=== PATIENT | female | born 1990 | race Caucasian/White ===

== ENCOUNTER 2016-12-31 22:38 | Emergency (ER) | payer SELFPAY ==
[~2016-12-31] VITALS: Ht 170.2 cm; Wt 62.0 kg
[~2016-12-31 22:38] MED LIST: GENT0.1C RIGHT EYE; OCUF0.3D EACH EYE; SULF1SOL4 RIGHT EYE
[2016-12-31 22:41] VITALS: BP 125/67; PULSE 76; RESP 16; TEMP 99.2; O2SAT 100
== END 2017-01-01 00:20 | disposition left against medical advice (07) ==
LOC: NED 22:38
DX: O46.91 Antepartum hemorrhage, unspecified, first trimester (principal); Z3A.08 8 weeks gestation of pregnancy; Z53.21 Procedure and treatment not carried out due to patient leaving prior to being seen by health care provider
CPT/HCPCS: 99281

== ENCOUNTER 2017-07-26 21:40 | Emergency (ER) | payer MEDICAID ==
[2017-07-26 22:00] VITALS: BP 126/78; PULSE 92
--- NOTE | 2017-07-26 22:03 | PD ---
HPI Chief Complaint ctx, ?LOF Date Seen: Jul 26, 2017 Travel History International Travel<30 Days: No Contact w/Intl Traveler<30Days: No Known Affected Area: No History of Present Illness HPI Pt is a 27y/o @ 38.0wks. She has PNC with [facility]. She presents with c/o ctx which are irregular and ?LOF last night. Pt states she had sex and isn't sure if she broke her water or if it was semen. is complicated by: -- h/o CSx1 (10 yrs ago) -- HSV (not on suppression, last outbreak October) -- HepC -- h/o IVDA (clean 18m) She desires . Weeks Gestation: 38 Para: 1 : 2 Last Menstrual Period: Jul 26, 2017 History Past Medical History Narrative Medical HepC h/o IVDA (cocaine/heroine) Obstetric History Obstetric History 1. 1'cs at term, preE, HSV Past Surgical History Narrative Surgical CSx1 Family History Family History: Negative Social History Alcohol Use: No Tobacco Use: No Substance Abuse: No (clean x18m) Allergies-Medications (Allergen,Severity, Reaction): Coded Allergies: coconut (Unverified Allergy, Severe, 03/04/17) Home Meds Active Scripts Ofloxacin (Ophth) (Floxcin) 0.3 % Soln, 1 DROP EACH EYE DIRECTED for 7 Days 2 drops in each eye every 2 hours x2 days, then 2 drops in each eye 4 times a day x5 days Prov:Elvia Zarco 08/22/13 Reported Medications Sulfacetamide Sodium 10% OPHT 15 ML (Sodium Sulamyd) 10 % Letitia, 1 DROP RIGHT EYE BID, LETITIA 08/22/13 Gentamicin Sulfate (Garamycin) 0.3 % Oin, 1 APPLIC RIGHT EYE BID, OIN 08/22/13 Review of Systems Except as stated in HPI: all other systems reviewed are Neg Physical Exam Narrative General: well developed, well nourished, no acute distress HEENT: normocephalic atraumatic, extraocular movements intact, neck supple Abdomen: soft, gravid, nontender, nondistended Uterus: fundus term Extremities: full range of motion Skin: normal coloration, no rashes, no suspicious skin lesions noted Neurologic: cranial nerves 2-12 grossly intact, normal muscle tone, normal gait Psychiatric: normal mood and affect, appropriate FHTs: 140, +accels, no decels, moderate variability, reactive [place]: quiet Cvx: 0/50/-3 Data Data Vital Signs Reviewed: Yes Orders Orders Vital Signs (Adult) .ON ADMISSION (07/26/17 22:02) ^ Non Stress Test (07/26/17 22:02) MDM Plan 27y/o @ 38.0wks. -- amnisure neg -- cvx cl/50/-3 -- FHTs cat 1 -- Pt desires . Had consult scheduled for 07/06 (39.5wks). Reviewed R/B/A today and will cancel consult. She is an excellent candidate given 10yr interval from prior and reason for c/s was HSV/preE. Pt counseled that HSV suppression tx is mandatory to prevent outbreak. Rx given. Pt counseled that best chance of sucessful is to come in with spontaneous labor. Dispo: d/c home with precautions, Rx Diagnosis Diagnosis: Primary Impression: 38 weeks gestation of Additional Impressions: Uterine contractions during No leakage of amniotic fluid into vagina Viral hepatitis complicating History of intravenous drug abuse HSV (herpes simplex virus) anogenital infection Gerardo Gonzalez MD Jul 26, 2017 22:03
== END 2017-07-26 22:30 | disposition home or self-care (01) ==
LOC: HOBED 21:40
DX: O47.1 False labor at or after 37 completed weeks of gestation (principal); O98.42 Viral hepatitis complicating childbirth; B19.9 Unspecified viral hepatitis without hepatic coma; O99.324 Drug use complicating childbirth; F19.10 Other psychoactive substance abuse, uncomplicated; O98.513 Other viral diseases complicating pregnancy, third trimester; B00.9 Herpesviral infection, unspecified; Z3A.38 38 weeks gestation of pregnancy; Z79.899 Other long term (current) drug therapy
CPT/HCPCS: 84112; 99284

== ENCOUNTER 2017-07-29 22:33 | Emergency (ER) | payer MEDICAID ==
--- NOTE | 2017-07-29 23:04 | PD ---
HPI Chief Complaint Contractions Date Seen: Jul 29, 2017 Time Seen: 23:01 Travel History International Travel<30 Days: No Contact w/Intl Traveler<30Days: No Known Affected Area: No History of Present Illness HPI 27-year-old at 3839 weeks gestation comes in complaining of contractions. Patient has had lower abdominal pain ever since she had membrane stripping in the office of [facility] this morning. She's had a previous 10 years ago and desires a trial of labor after . Contractions are irregular and have been occurring for the past 2 hours. Weeks Gestation: 38 Para: 1 : 2 History Past Medical History Narrative Medical Hepatitis C, chronic History of HSV presently on Valtrex suppression History of IV drug abuse denies use for the past 18 months Obstetric History Obstetric History 10 years ago Past Surgical History Narrative Surgical section Family History Family History: Negative Social History Alcohol Use: No Tobacco Use: No Substance Abuse: No Allergies-Medications (Allergen,Severity, Reaction): Coded Allergies: coconut (Unverified Allergy, Severe, 03/04/17) Home Meds Active Scripts Ofloxacin (Ophth) (Floxcin) 0.3 % Soln, 1 DROP EACH EYE DIRECTED for 7 Days 2 drops in each eye every 2 hours x2 days, then 2 drops in each eye 4 times a day x5 days Prov:Elvia Zarco 08/22/13 Reported Medications Sulfacetamide Sodium 10% OPHT 15 ML (Sodium Sulamyd) 10 % Letitia, 1 DROP RIGHT EYE BID, LETITIA 08/22/13 Gentamicin Sulfate (Garamycin) 0.3 % Oin, 1 APPLIC RIGHT EYE BID, OIN 08/22/13 Review of Systems Except as stated in HPI: all other systems reviewed are Neg Physical Exam Narrative GENERAL: Well-nourished, well-developed patient. SKIN: Warm and dry. HEAD: Normocephalic and atraumatic. ABDOMEN/GI: Abdomen soft, non-tender, bowel sounds present, no rebound, no guarding Gravid to [38-] weeks size Fundal Height: [-] GENITOURINARY: External Genitalia: intact and normal in appearance BUS glands: [-] Normal Cervix: [-] Posterior Dilatation: [-] Fingertip Effacement: [-] 50 Station: [-] High Presentation: [-] Vertex Membranes: [intact or ruptured] intact Uterine Contractions: [-] Every 5-8 minutes FHT's: Category: [-] 1 Baseline: [-] 140 Reactive: [-] Moderate Variability: [-] Moderate Decels: [-] Absent EXTREMITIES: No cyanosis or edema. BACK: Nontender without obvious deformity. No CVA tenderness. NEUROLOGICAL: Awake and alert. Motor and sensory grossly within normal limits. Five out of 5 muscle strength in all muscle groups. Normal speech. Reexamination at 0000am contractions are irregular are more spaced Cervix is unchanged Data Data Vital Signs Reviewed: Yes [facility] Medical Record Reviewed: Yes Plan 27 yo prior for TOLAC with false labor. No cervical change since exam this am Labor precautions given, return for ROM, worsening contractions, vaginal bleeding or decreased movement Keep appointment with OB provider Diagnosis Diagnosis: Primary Impression: 38 weeks gestation of Additional Impressions: Previous delivery affecting , antepartum False labor after 37 completed weeks of gestation Desires (vaginal after ) trial Disposition: 01 DISCHARGE HOME Leatha Drummond MD Jul 29, 2017 23:04
== END 2017-07-30 00:13 | disposition home or self-care (01) ==
LOC: HOBED 22:33
DX: O47.1 False labor at or after 37 completed weeks of gestation (principal); O98.42 Viral hepatitis complicating childbirth; O34.219 Maternal care for unspecified type scar from previous cesarean delivery; Z3A.38 38 weeks gestation of pregnancy
CPT/HCPCS: 59025

== ENCOUNTER 2017-08-07 08:27 | Inpatient (IN) | payer MEDICAID ==
[~2017-08-07] VITALS: Ht 157.5 cm; Wt 87.0 kg
[2017-08-07] VITALS (11 sets, daily range): BP systolic 102–120; BP diastolic 57–76; PULSE 55–92; RESP 15–20; TEMP 97.6–99.4; O2SAT 97–99
[2017-08-07] MEDS ORDERED: VALT500T PO (09:17)
--- NOTE | 2017-08-07 09:20 | HHI.HP ---
HPI Chief Complaint Scheduled repeat Date Seen: Aug 07, 2017 Time Seen: 09:00 Travel History International Travel<30 Days: No Contact w/Intl Traveler<30Days: No Known Affected Area: No History of Present Illness HPI Patient is a 27 year old at 39 weeks and 5 days who presents for a scheduled section. Patient has received care at [facility]' s office. Patient was recently seen in OB triage for irregular contractions with no cervical change. Patient reports no contractions since that visit on 07/26. Patient reports light pink spotting today. She denies gush of fluid. She reports positive movement. Weeks Gestation: 39 Para: 1 : 2 History Past Medical History Narrative Medical Hepatitis C - never been treated HSV - on Valtrex, last dose 08/07 at 7 a.m. History of IV drug use - no use for 21 months Obstetric History Obstetric History G1 - 2006; induction secondary to preeclampsia -> primary due to failure to progress G2 - current , no complications Past Surgical History Narrative Surgical x1 Family History Family History: Negative Social History Alcohol Use: No Tobacco Use: No Substance Abuse: No (History of IV drug use, cocaine and heroine ) Allergies-Medications (Allergen,Severity, Reaction): Coded Allergies: coconut (Unverified Allergy, Severe, 03/04/17) Home Meds Active Scripts Valacyclovir (Valtrex) 500 Mg Tab, 500 MG PO BID for Mgmt Viral Infection, #60 TAB 0 Refills Prov:Prisca Abdalla MD R1 08/07/17 Review of Systems Except as stated in HPI: all other systems reviewed are Neg Physical Exam Narrative GENERAL: Well-nourished, well-developed patient. SKIN: Warm and dry. HEAD: Normocephalic and atraumatic. EYES: No scleral icterus. No injection or drainage. ENT: No nasal drainage noted. Mucous membranes pink. Airway patent. NECK: Supple, trachea midline. No JVD. CARDIOVASCULAR: Regular rate and rhythm without murmurs, gallops, or rubs. RESPIRATORY: Breath sounds equal bilaterally. No accessory muscle use. ABDOMEN/GI: Abdomen soft, non-tender, bowel sounds present, no rebound, no guarding Gravid to 39 weeks size GENITOURINARY: Membranes: Intact Uterine Contractions: None FHT's: Category: 1 Baseline: 150 Reactive: Reactive Variability: Moderate Decels: None EXTREMITIES: No cyanosis or edema. BACK: Nontender without obvious deformity. No CVA tenderness. NEUROLOGICAL: Awake and alert. Motor and sensory grossly within normal limits. Five out of 5 muscle strength in all muscle groups. Normal speech. Caprini VTE Risk Assessment Caprini VTE Risk Assessment: No/Low Risk (score <= 1) Caprini Risk Assessment Model Point Value = 1 Point Value = 2 Point Value = 3 Point Value = 5 Age 41-60 Minor surgery BMI > 25 kg/m2 Swollen legs Varicose veins or History of unexplained or recurrent spontaneous Oral contraceptives or hormone replacement Sepsis (< 1 month) Serious lung disease, including pneumonia (< 1 month) Abnormal pulmonary function Acute myocardial infarction Congestive heart failure (< 1 month) History of inflammatory bowel disease Medical patient at bed rest Age 61-74 Arthroscopic surgery Major open surgery (> 45 min) Laparoscopic surgery (> 45 min) Malignancy Confined to bed (> 72 hours) Immobilizing plaster cast Central venous access Age >= 75 History of VTE Family history of VTE Factor V Leiden Prothrombin [id number] Lupus anticoagulant Anticardiolipin antibodies Elevated serum homocysteine Heparin-induced thrombocytopenia Other congenital or acquired thrombophilia Stroke (< 1 month) Elective arthroplasty Hip, pelvis, or leg fracture Acute spinal cord injury (< 1 month) Prophylaxis Regimen Total Risk Factor Score Risk Level Prophylaxis Regimen 0-1 Low Early ambulation 2 Moderate Order ONE of the following: *Sequential Compression Device (SCD) *Heparin 5000 units SQ BID 3-4 Higher Order ONE of the following medications: *Heparin 5000 units SQ TID *Enoxaparin/Lovenox 40 mg SQ daily (WT < 150 kg, CrCl > 30 mL/min) *Enoxaparin/Lovenox 30 mg SQ daily (WT < 150 kg, CrCl > 10-29 mL/min) *Enoxaparin/Lovenox 30 mg SQ BID (WT < 150 kg, CrCl > 30 mL/min) AND/OR *Sequential Compression Device (SCD) 5 or more Highest Order ONE of the following medications: *Heparin 5000 units SQ TID (Preferred with Epidurals) *Enoxaparin/Lovenox 40 mg SQ daily (WT < 150 kg, CrCl > 30 mL/min) *Enoxaparin/Lovenox 30 mg SQ daily (WT < 150 kg, CrCl > 10-29 mL/min) *Enoxaparin/Lovenox 30 mg SQ BID (WT < 150 kg, CrCl > 30 mL/min) AND *Sequential Compression Device (SCD) Data Data Vital Signs Reviewed: Yes Group B Strep: Negative Assessment/Plan Assessment and Plan Patient is a 27 year old at 39 weeks and 5 days who presents for a scheduled section. Patient has received care at [facility]' s office. * IUP- Category I tracing, reassuring. * Admit for repeat . Prisca Abdalla MD R1 Aug 07, 2017 09:20
[2017-08-07] MEDS ORDERED: LACTATED RINGER'S 1000 ML INJ 1,000 ML IV ONE ×2 (09:32→12:00)
[2017-08-07 09:50] LABS: BILIRUBIN, URINE NEG (NEG); BLOOD, URINE NEG (NEG); GLUCOSE,URINE NEG (NEG); HYALINE CAST, URINE 1 /lpf (RARE); KETONE, URINE NEG (NEG); MUCUS URINE FEW /lpf (OCC); NITRITE,URINE NEG (NEG); PH, URINE 7.5 (5.0-8.5); SQUAMOUS EPITHELIAL CELL URINE 1 /hpf (0-5); TRANSITIONAL EPI CELLS, URINE <1 /hpf; URINE COLOR YELLOW (YELLW/STRAW); URINE LEUKOCYTE ESTERASE TRACE (NEG)
[2017-08-07 09:50] LABS: AUTOMATED NEUTROPHIL # 7.2 TH/MM3 (1.8-7.7); BASOPHIL # 0.1 TH/MM3 (0-0.2); BASOPHIL % 0.6 % (0.0-2.0); EOSINOPHIL # 0.1 TH/MM3 (0-0.4); EOSINOPHIL % 0.5 % (0.0-4.0); HEMATOCRIT 34.3 % (35.0-46.0); HEMOGLOBIN 11.7 GM/DL (11.6-15.3); LYMPH % 21.9 % (9.0-44.0); LYMPHOCYTE # 2.3 TH/MM3 (1.0-4.8); MEAN CELL VOLUME 86.2 FL (80.0-100.0); MEAN CORPUSCULAR HEMOGLOBIN 29.4 PG (27.0-34.0); MEAN CORPUSCULAR HGB CONC 34.1 % (32.0-36.0); MEAN PLATELET VOLUME 9.1 FL (7.0-11.0); MONO % 7.7 % (0.0-8.0); MONOCYTE # 0.8 TH/MM3 (0-0.9); NEUT % 69.3 % (16.0-70.0); PLATELET COUNT 218 TH/MM3 (150-450); RED BLOOD COUNT 3.98 MIL/MM3 (4.00-5.30); RED CELL DISTRIBUTION WIDTH 12.9 % (11.6-17.2); WHITE BLOOD COUNT 10.4 TH/MM3 (4.0-11.0)
[2017-08-07] MEDS ORDERED: ACETAMINOPHEN 1000 MG/100 ML 100 ML IV ONE ×2 (09:58→11:00)
[2017-08-07] MEDS ORDERED: MORPHINE SULFATE PF 5 MG/10 ML VIAL ONE (09:58)
[2017-08-07] MEDS ORDERED: LACTATED RINGER'S 1000 ML INJ 1,000 ML IV SCH ×2 (10:02→17:22)
[2017-08-07] MEDS ORDERED: EPIDURAL-NO SYSTEMIC NARCOTICS PRN (10:35)
[2017-08-07] MEDS ORDERED: EPIDURAL-DIPHENHYDRAMINE HCL 50 MG CAP PO PRN (10:35)
[2017-08-07] MEDS ORDERED: EPIDURAL-NALOXONE HCL 0.4 MG/ML AMP IV PUSH PRN (10:35)
[2017-08-07] MEDS ORDERED: EPIDURAL-DO NOT ADMINISTER ANTICOAGULANTS PRN (10:35)
[2017-08-07] MEDS ORDERED: EPIDURAL-DIPHENHYDRAMINE HCL 50 MG/ML VIAL IV PUSH PRN (10:35)
--- NOTE | 2017-08-07 10:36 | HHI.PR ---
Subjective Remarks The patient is a 27-year-old 001 with IUP at 39.5. She presents for repeat delivery. She declines a at this time. She is hep C positive and HSV positive with a history of IV drug abuse but has been clean for 16 months. We discussed the risks, benefits, and alternatives to delivery including but not limited to pain, infection, bleeding, injury to other organs like the bladder, bowels, nerves, vessels, injury to the baby, need for blood transfusion, need for hysterectomy, need for repeat operation, wound infection or breakdown, and other possible complications. All of her questions were answered and consent was signed. The fetus had a reassuring NST. The patient does not desire a tubal ligation at this time. Objective Vital Signs Date Time Temp Pulse Resp B/P (MAP) Pulse Ox O2 Delivery O2 Flow Rate FiO2 08/07/17 09:43 98.8 20 08/07/17 09:33 92 119/76 (90) Result Diagram: 08/07/17 0905 Caitlyn Soto MD Aug 07, 2017 10:36
[2017-08-07] MEDS ORDERED: ceFAZolin 2 GM PREMIX 50 ML IV SCH (10:45)
[2017-08-07] MEDS ORDERED: CITRIC ACID-SODIUM CITRATE LIQ 30 ML UDC PO SCH (11:15)
[2017-08-07] MEDS ORDERED: PHENYLEPH/NS 1000 MCG/10 ML SYR IV ONE (12:00)
[2017-08-07] MEDS ORDERED: OXYTOCIN 10 UNIT/ML AMP IV ONE (12:00)
[2017-08-07] MEDS ORDERED: PROPOFOL 200 MG/20 ML AMP IV ONE (12:00)
[2017-08-07] MEDS ORDERED: DEXAMETHASONE SOD PHOS 4 MG/ML VIAL IV ONE (12:00)
[2017-08-07] MEDS ORDERED: ONDANSETRON HCL 4 MG/2 ML VIAL IV ONE (12:00)
--- NOTE | 2017-08-07 12:01 | PD.OB.DELI ---
Procedure Note Section Procedure Performed by Caitlyn Soto Procedure: Repeat Low Transverse Sec Indication for delivery: Desired elective repeat Previous condition: None Informed consent obtained: For anesthesia, For procedure Confirmed correct: Patient, Procedure, Site, Time-out taken Anesthesia: Spinal Medication prior to procedure: As documented in eMAR Monitoring during procedure: Blood pressure monitoring, monitor, Pulse oximetry Urinary catheter: Inserted using sterile technique, To dependent drainage, ml urine output (150cc clear urine) Sterile preparation: In usual fashion, With drapes to expose affected area, Other (Chloraprep) Position: Supine with wedge to left side Operative Features Skin Incision: Pfannenstiel Uterine Incision: Low transverse w/knife / blunt ext Membranes Ruptured: Artificially Presentation: Occiput anterior Delivery date: Aug 07, 2017 Delivery time: 10:54 Delivery of : Uneventful : Female One Minute : 9 Five Minute : 9 Weight: 3220g Status of infant: Viable, Cord blood, Nursery present Placenta delivered: Intact Medications: Oxytocin Estimated blood loss: 600cc Procedure tolerated: Well Maternal Condition: Stable Condition: Stable Procedure in detail See dictated op report Caitlyn Soto MD Aug 07, 2017 12:01
[2017-08-07] MEDS ORDERED: ONDANSETRON HCL 4 MG/2 ML VIAL IV PUSH PRN (12:30)
[2017-08-07] MEDS ORDERED: SODIUM CHLORIDE 0.9% FLUSH 10 ML FLUSH IV FLUSH PRN (12:30)
[2017-08-07] MEDS ORDERED: oxyCODONE/ACETAMINOPHEN 5 MG/325 MG TAB PO PRN ×2 (12:30)
[2017-08-07] MEDS ORDERED: IBUPROFEN 600 MG TAB PO PRN (12:30)
[2017-08-07] MEDS ORDERED: OXYTOCIN 30 UNITS-500ML PREMIX 500 ML IV ONE (12:30)
[2017-08-07] MEDS: ACETAMINOPHEN 1000 MG/100 ML 100 ML IV SCH (20:10)
[2017-08-07] MEDS ORDERED: OXYTOCIN 30 UNITS-500ML PREMIX 500 ML IV PRN (22:30)
[2017-08-08 00:40] VITALS: BP 118/67; PULSE 88; RESP 16; TEMP 99.1
[2017-08-08 04:00] VITALS: BP 118/68; PULSE 88; RESP 14; RESP 9; TEMP 98.7
[2017-08-08] MEDS: ACETAMINOPHEN 1000 MG/100 ML 100 ML IV SCH (04:17)
[2017-08-08] MEDS: ACETAMINOPHEN 325 MG TAB PO PRN ×3 (04:30→17:44)
[2017-08-08 07:15] LABS: AUTOMATED NEUTROPHIL # 11.5 TH/MM3 (1.8-7.7); BASOPHIL % 0.3 % (0.0-2.0); EOSINOPHIL % 0.3 % (0.0-4.0); HEMOGLOBIN 9.4 GM/DL (11.6-15.3); LYMPH % 15.6 % (9.0-44.0); LYMPHOCYTE # 2.3 TH/MM3 (1.0-4.8); MEAN CELL VOLUME 86.3 FL (80.0-100.0); MEAN CORPUSCULAR HGB CONC 33.6 % (32.0-36.0); MEAN PLATELET VOLUME 8.9 FL (7.0-11.0); MONO % 6.6 % (0.0-8.0); NEUT % 77.2 % (16.0-70.0); PLATELET COUNT 182 TH/MM3 (150-450); RED BLOOD COUNT 3.25 MIL/MM3 (4.00-5.30); RED CELL DISTRIBUTION WIDTH 12.7 % (11.6-17.2); WHITE BLOOD COUNT 14.9 TH/MM3 (4.0-11.0)
[2017-08-08 08:00] VITALS: BP 108/67; PULSE 93; RESP 18; TEMP 98.9; O2SAT 97
--- NOTE | 2017-08-08 10:00 | HHI.OB ---
Subjective Post Operative Day: 1 Remarks Patient is a 27-year-old delivered at 39 weeks and 5 days. Patient is day 1 after repeat section. Patient's pain is well- controlled. Patient reports minimal bleeding. Patient reports eating and drinking without any nausea or vomiting. Patient has not passed gas or had a bowel movement. Patient denies chest pain and shortness of breath. Patient has been ambulating; she denies lower extremity pain. Patient has decided to breast feed. Objective Vitals/I&O Vital Signs Date Time Temp Pulse Resp B/P (MAP) Pulse Ox O2 Delivery O2 Flow Rate FiO2 08/08/17 04:00 118/68 (85) 08/08/17 04:00 98.7 88 9 08/08/17 04:00 14 08/08/17 00:40 99.1 88 16 118/67 (84) 08/07/17 21:00 99.1 76 111/66 (81) 08/07/17 21:00 99.4 77 16 120/66 (84) 08/07/17 17:30 97.6 67 16 105/66 (79) 08/07/17 13:51 97.8 55 16 08/07/17 13:51 102/70 (81) 08/07/17 13:00 99 08/07/17 13:00 16 08/07/17 13:00 67 106/57 (73) 08/07/17 12:45 76 18 104/60 (75) 08/07/17 12:45 98 08/07/17 12:30 99 08/07/17 12:30 69 20 08/07/17 12:30 102/60 (74) 08/07/17 12:15 97 08/07/17 12:15 102/61 (75) 08/07/17 12:15 76 15 08/07/17 12:03 97.7 73 16 107/67 (80) 08/07/17 12:00 107/67 (80) 08/07/17 12:00 98 08/07/17 12:00 97.7 73 16 Result Diagram: 08/08/17 0502 Objective Remarks GENERAL: Well-nourished, well-developed patient. CARDIOVASCULAR: Regular rate and rhythm without murmurs, gallops, or rubs. RESPIRATORY: Breath sounds equal bilaterally. No accessory muscle use. ABDOMEN/GI: Abdomen soft, minimally tender, hypoactive bowel sounds. Incision: Pressure dressing in place. Dry. Fundus: Firm, tender at umbilicus. GENITOURINARY: Light bleeding. EXTREMITIES: No cyanosis or edema, non-tender, without signs of DVT. Medications and IVs Current Medications Medications (Trade) Dose Ordered Sig/Elvis Route Start Time Stop Time Status Last Admin Lactated Ringer's 1,000 ml @ 100 mls/hr Q10H IV 08/07/17 17:22 08/08/17 13:21 Oxytocin 500 ml @ 100 mls/hr UNSCH X1 PRN IV 08/07/17 22:30 08/08/17 22:29 (NS Flush) 2 ml BID IV FLUSH 08/07/17 21:00 (NS Flush) 2 ml UNSCH PRN IV FLUSH 08/07/17 12:30 (Tylenol) 650 mg Q6H PRN PO 08/07/17 12:30 08/08/17 04:30 (Motrin) 600 mg Q6H PRN PO 08/07/17 12:30 08/08/17 04:30 (Percocet 5-325 Mg) 1 tab Q4H PRN PO 08/07/17 12:30 (Percocet 5-325 Mg) 2 tab Q4H PRN PO 08/07/17 12:30 (M-M-R Ii Inj) 0.5 ml ONCE ONCE SQ 08/08/17 16:00 08/08/17 16:01 (Boostrix Inj) 0.5 ml ONCE ONCE IM 08/08/17 16:00 08/08/17 16:01 08/07/17 23:51 (Zofran Inj) 4 mg Q6H PRN IV PUSH 08/07/17 12:30 Miscellaneous Information NO SYSTEMIC NARCOTICS TO BE GIVEN FO... UNSCH PRN .XX 08/07/17 10:35 08/08/17 10:34 (Narcan Inj) 0.4 mg UNSCH PRN IV PUSH 08/07/17 10:35 08/08/17 10:34 (Benadryl Inj) 25 mg Q6H PRN IV PUSH 08/07/17 10:35 08/08/17 10:34 (Benadryl) 50 mg Q6H PRN PO 08/07/17 10:35 08/08/17 10:34 08/07/17 14:17 Miscellaneous Information ALL NURSING DEPARTMENTS UNSCH PRN .XX 08/07/17 10:35 08/08/17 10:34 Assessment/Plan Assessment and Plan Patient is a 27-year-old delivered at 39 weeks and 5 days. Patient is day 1 after repeat section. * Continue routine care. * Tylenol or Toradol IM when necessary for pain. * Encourage OOB. * 1 week follow-up for incision check. * Pelvic rest for 6 weeks; will need follow-up appointment at that time. * Anticipate discharge tomorrow or Friday. Patient discussed with OB hospitalist. Prisca Abdalla MD R1 Aug 08, 2017 10:00
[2017-08-08] MEDS ORDERED: KETOROLAC TROMETHAMINE 10 MG TAB PO PRN (10:45)
[2017-08-08] MEDS: KETOROLAC TROMETHAMINE 60 MG/2 ML (IM) VIAL IM PRN ×3 (11:15→23:56)
[2017-08-08] MEDS ORDERED: CALCIUM CARBONATE 500 MG CHEWABLE TAB CHEW PRN (15:00)
[2017-08-08] MEDS ORDERED: MEASLES, MUMPS, RUBELLA VACCINE 0.5 ML VIAL SQ ONE (16:00)
[2017-08-08] MEDS ORDERED: DIPHTH/TETANUS/ACEL PERTUSSIS (BOOSTER) 0.5 ML VIAL/PFS IM ONE (16:00)
[2017-08-08 20:00] VITALS: BP 134/81; PULSE 84; RESP 18; TEMP 97.5; O2SAT 96
[2017-08-08] MEDS ORDERED: oxyCODONE/ACETAMINOPHEN 5 MG/325 MG TAB PO PRN (23:45)
[2017-08-08] MEDS: oxyCODONE/ACETAMINOPHEN 5 MG/325 MG TAB PO PRN (23:55)
[2017-08-09] MEDS: oxyCODONE/ACETAMINOPHEN 5 MG/325 MG TAB PO PRN ×3 (06:10→16:15)
[2017-08-09] MEDS: KETOROLAC TROMETHAMINE 60 MG/2 ML (IM) VIAL IM PRN ×2 (06:12→12:09)
[2017-08-09 08:00] VITALS: BP 114/78; PULSE 87; RESP 18; TEMP 98.9; O2SAT 97
--- NOTE | 2017-08-09 09:42 | HHI.OB ---
Subjective Post Operative Day: 2 Remarks Postoperative day number 2. AFVSS overnight. Pain improving after given Percocet this AM. Incision not draining. Decreased lochia. Denies dysuria. No breast tenderness. She is feeding the baby via breast. Appetite good. No nausea or vomiting. Endorses flatus. No bowel movement. Ambulating well. Denies calf pain, shortness of breath, or cough. Otherwise, she is doing well this morning and has no other complaints. Objective Vitals/I&O Vital Signs Date Time Temp Pulse Resp B/P (MAP) Pulse Ox O2 Delivery O2 Flow Rate FiO2 08/08/17 20:00 97.5 84 18 134/81 (98) 96 Result Diagram: 08/08/17 0506 Objective Remarks GENERAL: Well-nourished, well-developed patient. CARDIOVASCULAR: Regular rate and rhythm without murmurs, gallops, or rubs. RESPIRATORY: Breath sounds equal bilaterally. No accessory muscle use. ABDOMEN/GI: Abdomen soft, minimally tender, hypoactive bowel sounds. Incision: Pressure dressing in place. Dry. Fundus: Firm, tender at umbilicus. GENITOURINARY: Light bleeding. EXTREMITIES: No cyanosis or edema, non-tender, without signs of DVT. Medications and IVs Current Medications Medications (Trade) Dose Ordered Sig/Elvis Route Start Time Stop Time Status Last Admin (NS Flush) 2 ml BID IV FLUSH 08/07/17 21:00 (NS Flush) 2 ml UNSCH PRN IV FLUSH 08/07/17 12:30 (Tylenol) 650 mg Q6H PRN PO 08/07/17 12:30 08/08/17 17:44 (Zofran Inj) 4 mg Q6H PRN IV PUSH 08/07/17 12:30 (Toradol Inj) 30 mg Q6H PRN IM 08/08/17 11:15 08/12/17 11:14 08/09/17 06:12 (Tums Chew) 500 mg Q2H PRN CHEW 08/08/17 15:00 08/08/17 16:08 (Percocet 5-325 Mg) 1 tab Q4H PRN PO 08/08/17 23:45 08/09/17 06:10 (Percocet 5-325 Mg) 2 tab Q4H PRN PO 08/08/17 23:45 Assessment/Plan Assessment and Plan Patient is a 27-year-old delivered at 39 weeks and 5 days. Patient is day 1 after repeat section. * Continue routine care. * Tylenol or Toradol IM when necessary for pain. * Encourage OOB. * 1 week follow-up for incision check. * Pelvic rest for 6 weeks; will need follow-up appointment at that time. * Anticipate discharge tomorrow Ra Stubbs MD Aug 09, 2017 09:42
--- NOTE | 2017-08-09 12:48 | MP ---
cc: CAITLYN SOTO MD DATE OF SURGERY: 08/07/2017. PREOPERATIVE DIAGNOSIS: 1. Intrauterine at 39 weeks and 5 days. 2. Prior delivery. 3. Declines . 4. Hepatitis C positive. 5. History of IV drug abuse, reports last usage 16 months ago. 6. HSV. POSTOPERATIVE DIAGNOSIS: 1. Intrauterine at 39 weeks and 5 days. 2. Prior delivery. 3. Declines . 4. Hepatitis C positive. 5. History of IV drug abuse, reports last usage 16 months ago. 6. HSV. OPERATION: 1. Repeat low transverse by Pfannenstiel skin incision. 2. Placement of Olivier self-containing wound retractor. 3. Placement of hemostatic agent with Iqra. SURGEON: Caitlyn Soto MD. ASSISTANTS: Dr. Lo , Eulalia Mena. FINDINGS: A viable female infant in the cephalic presentation with Apgars of 9 and 9, weighing 3220 grams, and delivered at 10:54 a.m. The patient had normal maternal anatomy. The bladder was noted to be adherent to the lower uterine segment. SPECIMENS: Removed placenta. ESTIMATED BLOOD LOSS: 600 cc. IV FLUIDS: 2800 cc lactated Ringers. URINE OUTPUT: 150 cc clear urine at the end of the procedure. INDICATIONS FOR THE PROCEDURE: The patient is a 27-year-old 2, para 1-0-0-1 who presented for an elective repeat section at term. She was counselled and declined . DESCRIPTION OF THE PROCEDURE IN DETAIL: After obtaining informed consent with risks, benefits, and alternatives discussed at length including but not limited to pain, infection, bleeding, injury to other organs like the bladder, bowels, nerves or vessels, injury to the baby, need for a repeat operation, need for a blood transfusion, need for a hysterectomy, wound infection or breakdown and other possible complications, the patient was taken to the operating room with reassuring heart tones. Upon arrival in the operating room, she underwent spinal anesthesia without difficulty and was placed in the dorsal supine position with a leftward tilt. Reassuring heart tones were confirmed and the patient was prepped and draped in the normal sterile fashion after confirming adequate anesthesia. A time out procedure was performed and adequate anesthesia was once again confirmed. A Pfannenstiel skin incision was made with the scalpel and carried down to the level of the fascia with the Bovie cautery. The fascia was nicked in the midline with the Bovie cautery and the fascial incision extended laterally with the curved Barrett scissors. The Uzair clamps were applied to the superior aspect of the fascial incision which was dissected off the underlying rectus muscles bluntly. The Uzair clamps were applied to the inferior aspect of the fascial incision in similar fashion. The rectus muscles were in the midline and the peritoneum entered bluntly. The peritoneal incision was extended bluntly. The bladder blade was inserted and the vesicouterine peritoneum was identified. The bladder was noted to be adherent to the lower uterine segment but the vesicouterine peritoneum was able to be entered sharply with the Metzenbaum scissors and a bladder flap created digitally. The lower uterine segment was thinned with the scalpel and a hysterotomy created bluntly. The hysterotomy was extended bluntly. The vertex was elevated to the level of the hysterotomy and delivered traumatically followed by atraumatic delivery of the remainder of the . The was vigorous on the field so cord clamp was delayed for 45 seconds. After a 45-second delay, the cord was doubly clamped and cut and the infant handed off to the awaiting team. The placenta was removed manually and the uterus cleared of all clots and debris. The hysterotomy was repaired with a #1 chromic in a running locked fashion. A second layer of the same was used in an imbricating fashion. Two additional [id number] stitches were placed, one at the right apex and one at the midportion of the hysterotomy after which hemostasis was noted. Although hemostasis was noted, there was an area of tissue that appeared to be friable so Iqra was placed over the hysterotomy site after clearing the gutters of all clots and debris. The rectus muscles were reapproximated in the midline with #1 chromic in a box type stitch. The rectus muscles were reexamined and noted to be hemostatic; however, due to the friable nature of the tissue, Iqra was placed. Of note, the patient reports that she takes many herbal supplements but denies any aspirin usage or NSAID usage. The fascia was reapproximated with #1 Vicryl in a running fashion. The subcutaneous tissue was irrigated with warm normal saline and no fascial defects noted. The subcutaneous tissue was noted to be hemostatic and reapproximated with 2-0 Vicryl. The skin edges were reapproximated with 3-0 Monocryl. All sponge, lap, and needle counts were correct x2. I performed the entire procedure myself. The patient was taken to the post-anesthesia care unit in stable condition. Caitlyn Soto MD [facility]HAEL /1:37 PM /12:19 PM
[2017-08-09] MEDS: SODIUM CHLORIDE 0.9% FLUSH 10 ML FLUSH IV FLUSH SCH (16:34)
[2017-08-09] MEDS ORDERED: oxyCODONE/ACETAMINOPHEN 5 MG/325 MG TAB PO PRN (17:45)
[2017-08-09 19:25] VITALS: BP 128/79; PULSE 82; RESP 16; TEMP 98.1; O2SAT 97
[2017-08-09] MEDS: IBUPROFEN 800 MG TAB PO PRN (21:22)
[2017-08-10] MEDS: oxyCODONE/ACETAMINOPHEN 5 MG/325 MG TAB PO PRN ×3 (02:29→11:09)
[2017-08-10] MEDS: IBUPROFEN 800 MG TAB PO PRN (06:46)
[2017-08-10] MEDS ORDERED: IBUP1TAB7 PO (07:36)
[2017-08-10] MEDS ORDERED: OXYC1TAB63 PO (07:36)
[2017-08-10] MEDS ORDERED: SENN1TAB PO (07:36)
[2017-08-10 08:05] VITALS: BP 107/70; PULSE 85; RESP 16; TEMP 98
--- NOTE | 2017-08-10 08:06 | HHI.OB ---
Subjective Post Operative Day: 3 Remarks Postoperative day number 3. AFVSS overnight. Pain controlled with medications. Discussed use of opioid medications, patient understands risk. Incision not draining. Decreased lochia. Denies dysuria. Some right breast tenderness. She is feeding the baby via breast. Appetite good. No nausea or vomiting. Endorses flatus. No bowel movement. Ambulating well. Denies calf pain, shortness of breath, or cough. Otherwise, she is doing well this morning and has no other complaints. Objective Vitals/I&O Vital Signs Date Time Temp Pulse Resp B/P (MAP) Pulse Ox O2 Delivery O2 Flow Rate FiO2 08/09/17 19:25 98.1 97 08/09/17 19:25 82 16 128/79 (95) Result Diagram: 08/08/17 0507 Objective Remarks GENERAL: Well-nourished, well-developed patient. CARDIOVASCULAR: Regular rate and rhythm without murmurs, gallops, or rubs. RESPIRATORY: Breath sounds equal bilaterally. No accessory muscle use. ABDOMEN/GI: Abdomen soft, minimally tender, hypoactive bowel sounds. Incision: Pressure dressing in place. Dry. Fundus: Firm, tender at umbilicus. GENITOURINARY: Light bleeding. EXTREMITIES: No cyanosis or edema, non-tender, without signs of DVT. Medications and IVs Current Medications Medications (Trade) Dose Ordered Sig/Elvis Route Start Time Stop Time Status Last Admin (NS Flush) 2 ml BID IV FLUSH 08/07/17 21:00 (NS Flush) 2 ml UNSCH PRN IV FLUSH 08/07/17 12:30 (Tylenol) 650 mg Q6H PRN PO 08/07/17 12:30 08/08/17 17:44 (Zofran Inj) 4 mg Q6H PRN IV PUSH 08/07/17 12:30 (Tums Chew) 500 mg Q2H PRN CHEW 08/08/17 15:00 08/08/17 16:08 (Motrin) 800 mg Q8H PRN PO 08/09/17 17:00 08/10/17 06:46 (Percocet 5-325 Mg) 1 tab Q4H PRN PO 08/09/17 22:30 08/10/17 06:47 Assessment/Plan Assessment and Plan Patient is a 27-year-old delivered at 39 weeks and 5 days. Patient is day 3 after repeat section. * Continue routine care. * Ibuprofen and Percocet for pain PRN * Encourage OOB. * 1 week follow-up for incision check. * Pelvic rest for 6 weeks; will need follow-up appointment at that time. * Will give Depo shot today for control * Discharge today Ra Stubbs MD Aug 10, 2017 08:06
--- NOTE | 2017-08-10 08:06 | HHI.DCPOC ---
Discharge Care Plan Diagnosis: (1) care following delivery Report Symptoms to Your Doctor -Temperature above 100.5 degrees -Redness, of incision or excessive or foul smelling drainage -Unusual pain or calf pain -Increased vaginal bleeding -Painful or difficulty urinating -Feelings of extreme sadness or anxiety after 2 weeks Goals to Promote Your Health * To prevent worsening of your condition and complications * To maintain your health at the optimal level Directions to Meet Your Goals Take your medications as prescribed Follow your dietary instruction Follow activity as directed Ensure plenty of rest for recovery Drink fluids for hydration Keep your appointments as scheduled Take your immunizations and boosters as scheduled If your symptoms worsen call your PCP, if no PCP go to Urgent Care Center or Emergency Room Smoking is Dangerous to Your Health. Avoid second hand smoke Call the 24-hour crisis hotline for domestic abuse at Ra Stubbs MD Aug 10, 2017 08:06
[2017-08-10] MEDS ORDERED: medroxyPROGESTERone ACETATE SUSP 150 MG/ML SYRINGE IM ONE (08:15)
[2017-08-10] MEDS: SODIUM CHLORIDE 0.9% FLUSH 10 ML FLUSH IV FLUSH SCH (08:39)
== END 2017-08-10 13:08 | disposition home or self-care (01) | DRG 765 ==
LOC: H2EB 08:27 → H1EA 13:24
PROVIDERS: ADMIT Obstetrics & Gynecology; ATTEND Obstetrics & Gynecology
PROC: 10D00Z1 Extraction of Products of Conception, Low, Open Approach (ICD-10-PCS; principal; 2017-08-07)
DX: O34.211 Maternal care for low transverse scar from previous cesarean delivery (principal); O98.42 Viral hepatitis complicating childbirth; O98.52 Other viral diseases complicating childbirth; B00.9 Herpesviral infection, unspecified; B19.20 Unspecified viral hepatitis C without hepatic coma; Z3A.39 39 weeks gestation of pregnancy; Z37.0 Single live birth
CPT/HCPCS: 80307; 81001; 85025; 86850; 86900; 86901; 90715; J0131; J0690; J1050; J1100; J1885; J2274; J2370; J2405; J2590; J3010; J7120; Q0163